=== PATIENT | female | born 1935 | race Caucasian/White ===

== ENCOUNTER → 2016-10-28 | Outpatient (CLI) | payer MEDICARE ==
[~2016-10-28] MED LIST: ACET-703 PO; ALEV220C PO; ASPI1TAB69 PO; CALC1TAB30 PO; CYCL1TAB29 PO; DEXT1CAP5 PO; DICL1GEL TOPICAL; ESTR42.5V VAGINAL; LORA-400 PO; LUTE20CA PO; MELAPOW2 PO; MIRA33504 PO; NIFE90TA2 PO; OCUVTAB PO; RANI150T PO; SIMV40TA PO; SYSTSOL EACH EYE; TOLT1TAB16 PO; VITA100064 PO; VITA500T PO; [UNRECOGNIZED DRUG - OTHER] NASAL
[2016-10-28 13:49] LABS: INDIRECT BILIRUBIN 0.1 MG/DL (0.0-0.8); TOTAL BILIRUBIN ADULT 0.2 MG/DL (0.2-1.0)
== END ==
LOC: PLAB 09:34
PROVIDERS: ATTEND Family Medicine
DX: E78.2 Mixed hyperlipidemia (principal); Z79.899 Other long term (current) drug therapy
CPT/HCPCS: 36415; 80061; 80076

== ENCOUNTER → 2017-04-15 | Outpatient (CLI) | payer MEDICARE ==
[2017-04-15 14:09] LABS: INDIRECT BILIRUBIN 0.2 MG/DL (0.0-0.8); TOTAL BILIRUBIN ADULT 0.3 MG/DL (0.2-1.0)
== END ==
LOC: PLAB 09:09
PROVIDERS: ATTEND Family Medicine
DX: E78.2 Mixed hyperlipidemia (principal); Z79.899 Other long term (current) drug therapy
CPT/HCPCS: 36415; 80061; 80076

== ENCOUNTER → 2017-07-30 | Outpatient (CLI) | payer MEDICARE ==
[~2017-07-30] MED LIST changes: +CYCL10TA PO; -CYCL1TAB29 PO
[2017-07-30 13:31] LABS: HDL CHOLESTEROL 68.5 MG/DL (40.0-60.0); INDIRECT BILIRUBIN 0.3 MG/DL (0.0-0.8); TOTAL BILIRUBIN ADULT 0.4 MG/DL (0.2-1.0)
== END ==
LOC: PLAB 09:12
PROVIDERS: ATTEND Family Medicine
DX: E78.2 Mixed hyperlipidemia (principal); Z79.899 Other long term (current) drug therapy
CPT/HCPCS: 36415; 80061; 80076

== ENCOUNTER → 2017-09-04 | Outpatient (CLI) | payer MEDICARE ==
[2017-09-04 13:31] LABS: AUTOMATED NEUTROPHIL # 2.8 TH/MM3 (1.8-7.7); BASOPHIL # 0.1 TH/MM3 (0-0.2); BASOPHIL % 1.1 % (0.0-2.0); EOSINOPHIL # 0.3 TH/MM3 (0-0.4); EOSINOPHIL % 5.3 % (0.0-4.0); HEMATOCRIT 37.3 % (35.0-46.0); HEMOGLOBIN 12.1 GM/DL (11.6-15.3); LYMPH % 36.4 % (9.0-44.0); LYMPHOCYTE # 2.1 TH/MM3 (1.0-4.8); MEAN CELL VOLUME 92.3 FL (80.0-100.0); MEAN CORPUSCULAR HEMOGLOBIN 30.1 PG (27.0-34.0); MEAN CORPUSCULAR HGB CONC 32.6 % (32.0-36.0); MEAN PLATELET VOLUME 8.7 FL (7.0-11.0); MONO % 9.4 % (0.0-8.0); MONOCYTE # 0.5 TH/MM3 (0-0.9); NEUT % 47.8 % (16.0-70.0); PLATELET COUNT 210 TH/MM3 (150-450); RED BLOOD COUNT 4.04 MIL/MM3 (4.00-5.30); RED CELL DISTRIBUTION WIDTH 14.7 % (11.6-17.2); WHITE BLOOD COUNT 5.8 TH/MM3 (4.0-11.0)
== END ==
LOC: PLAB 11:39
PROVIDERS: ATTEND Internal Medicine Gastroenterology
DX: R19.5 Other fecal abnormalities (principal)
CPT/HCPCS: 36415; 85025

== ENCOUNTER → 2018-01-18 | Outpatient (CLI) | payer MEDICARE ==
[2018-01-18 14:00] LABS: AUTOMATED NEUTROPHIL # 2.2 TH/MM3 (1.8-7.7); BASOPHIL # 0.1 TH/MM3 (0-0.2); BASOPHIL % 1.1 % (0.0-2.0); EOSINOPHIL # 0.5 TH/MM3 (0-0.4); EOSINOPHIL % 8.4 % (0.0-4.0); HEMATOCRIT 38.1 % (35.0-46.0); HEMOGLOBIN 12.5 GM/DL (11.6-15.3); LYMPH % 39.9 % (9.0-44.0); LYMPHOCYTE # 2.2 TH/MM3 (1.0-4.8); MEAN CELL VOLUME 92.1 FL (80.0-100.0); MEAN CORPUSCULAR HEMOGLOBIN 30.3 PG (27.0-34.0); MEAN CORPUSCULAR HGB CONC 32.9 % (32.0-36.0); MEAN PLATELET VOLUME 9.1 FL (7.0-11.0); MONO % 11.1 % (0.0-8.0); MONOCYTE # 0.6 TH/MM3 (0-0.9); NEUT % 39.5 % (16.0-70.0); PLATELET COUNT 220 TH/MM3 (150-450); RED BLOOD COUNT 4.13 MIL/MM3 (4.00-5.30); RED CELL DISTRIBUTION WIDTH 14.1 % (11.6-17.2); WHITE BLOOD COUNT 5.5 TH/MM3 (4.0-11.0)
[2018-01-18 14:13] LABS: ALBUMIN 3.3 GM/DL (3.4-5.0); ALT (GPT) 26 U/L (10-53); AST (GOT) 32 U/L (15-37); BICARBONATE 28.4 MEQ/L (21.0-32.0); BLOOD UREA NITROGEN 36 MG/DL (7-18); CALCIUM 8.7 MG/DL (8.5-10.1); CHLORIDE 109 MEQ/L (98-107); CHOLESTEROL 130 MG/DL (120-200); CREATININE 0.99 MG/DL (0.50-1.00); GLOMERULAR FILTRATION RATE 53 ML/MIN (>89); GLUCOSE,FASTING 75 MG/DL (74-99); SODIUM (NA) 146 MEQ/L (136-145); TRIGLYCERIDES 66 MG/DL (42-150)
[2018-01-18 14:15] LABS: ALKALINE PHOSPHATASE 60 U/L (45-117); CHOLESTEROL/ HDL RATIO 2.34 RATIO; HDL CHOLESTEROL 55.5 MG/DL (40.0-60.0); LDL CHOLESTEROL 61 MG/DL (0-99); TOTAL BILIRUBIN ADULT 0.3 MG/DL (0.2-1.0); TOTAL PROTEIN 6.4 GM/DL (6.4-8.2)
== END ==
LOC: PLAB 09:43
PROVIDERS: ATTEND Family Medicine
DX: E78.2 Mixed hyperlipidemia (principal); Z79.899 Other long term (current) drug therapy
CPT/HCPCS: 36415; 80053; 80061; 85025